=== PATIENT | male | born 1975 | race Caucasian/White ===

== ENCOUNTER 2017-03-08 23:58 | Emergency (ER) | payer OTHER ==
[~2017-03-08] VITALS: Ht 175.3 cm; Wt 88.0 kg
[~2017-03-08 23:58] MED LIST: AMLO-512 PO; ATOR20TA86 PO; HYDR25TA PO; METF500T4 PO; SERT50TA12 PO; TRAZ-144 PO
[2017-03-09] MEDS ORDERED: GABA-531 PO ×2 (00:06)
[2017-03-09 00:12] LABS: GLUCOSE,POINT OF CARE 92 MG/DL (70-110)
[2017-03-09 00:36] LABS: BASOPHILS % (AUTO) 0.8 % (0.0-2.0); EOSINOPHILS % (AUTO) 2.8 % (1.0-6.0); HEMATOCRIT 46.5 % (41-53); HEMOGLOBIN 15.2 g/dL (13.5-17.5); LYMPHOCYTES # (AUTO) 3.2 K/uL (1.0-4.8); LYMPHOCYTES % (AUTO) 31.8 % (22.0-44.0); MEAN CORPUSCULAR HEMOGLOBIN 29.4 pg (26.0-34.0); MEAN CORPUSCULAR HGB CONC 32.6 G/dL (31.0-37.0); MEAN CORPUSCULAR VOLUME 90 fL (80-100); MONOCYTES # (AUTO) 0.9 K/uL (0.1-1.0); MONOCYTES % (AUTO) 9.2 % (2.0-9.0); NEUTROPHILS # (AUTO) 5.5 K/uL (1.8-7.7); NEUTROPHILS % (AUTO) 55.4 % (40.0-70.0); PLATELET COUNT (AUTO) 246 K/uL (150-450); RED BLOOD CELL COUNT(AUTO) 5.17 MIL/uL (4.50-5.90); WHITE BLOOD COUNT (AUTO) 9.9 K/uL (4.5-11.0)
[2017-03-09 00:39] LABS: ANION GAP 6 mmol/L (8-16); CALCIUM, TOTAL 8.6 mg/dL (8.8-10.5); CARBON DIOXIDE 32 mmol/L (22-29); CHLORIDE 104 mmol/L (98-107); GLOMERULAR FILTR. RATE CALC > 60 mL/min (>60); POTASSIUM 3.6 mmol/L (3.5-5.1); SODIUM SERUM 142 mmol/L (136-145); UREA NITROGEN, BLOOD 17 mg/dL (7-18)
[2017-03-09 00:42] LABS: INR 1.1 (0.9-1.1); PROTHROMBIN TIME 11.1 SEC (9.4-11.6)
[2017-03-09 01:00] LABS: B-TYPE NATRIURETIC PEPTIDE < 5 pg/mL (0-100)
[2017-03-09 01:04] LABS: ALANINE AMINOTRANSFERASE 33 U/L (12-78); ALBUMIN 3.9 g/dL (3.4-5.0); ASPARTATE AMINOTRANSFERASE 23 U/L (15-37); BILIRUBIN,TOTAL 0.3 mg/dL (0.1-1.0); CREATINE KINASE MB 3.3 ng/mL (0-5); CREATINE KINASE, TOTAL 275 U/L (39-308); TOTAL PROTEIN, SERUM 7.1 g/dL (6.4-8.2)
[2017-03-09 06:27] VITALS: BP 129/72
== END 2017-03-09 06:35 | disposition home or self-care (01) ==
LOC: EDBD 03-09 → EMS 03-09
DX: R07.9 Chest pain, unspecified (principal); F15.90 Other stimulant use, unspecified, uncomplicated; I10 Essential (primary) hypertension; E11.9 Type 2 diabetes mellitus without complications; E78.00 Pure hypercholesterolemia, unspecified; F12.90 Cannabis use, unspecified, uncomplicated; Z88.8 Allergy status to other drugs, medicaments and biological substances
CPT/HCPCS: 36415; 71010; 80053; 80307; 82550; 82553; 82962; 83880; 84484; 85025; 85610; 85730; 93005; 99285; G0480

== ENCOUNTER 2017-03-17 12:33 | Inpatient (IN) | payer OTHER, MEDICAID ==
[~2017-03-17] VITALS: Ht 175.3 cm; Wt 84.1 kg
[~2017-03-17 12:33] MED LIST changes: +GABA-531 PO
[2017-03-17] MEDS ORDERED: LOSA50TA37 PO (12:54)
[2017-03-17 13:01] LABS: BASOPHILS % (AUTO) 0.9 % (0.0-2.0); EOSINOPHILS % (AUTO) 1.1 % (1.0-6.0); HEMATOCRIT 51.3 % (41-53); HEMOGLOBIN 16.8 g/dL (13.5-17.5); LYMPHOCYTES % (AUTO) 24.6 % (22.0-44.0); MEAN CORPUSCULAR HEMOGLOBIN 29.1 pg (26.0-34.0); MEAN CORPUSCULAR HGB CONC 32.7 G/dL (31.0-37.0); MEAN CORPUSCULAR VOLUME 89 fL (80-100); MONOCYTES # (AUTO) 0.6 K/uL (0.1-1.0); MONOCYTES % (AUTO) 7.6 % (2.0-9.0); NEUTROPHILS # (AUTO) 5.3 K/uL (1.8-7.7); NEUTROPHILS % (AUTO) 65.8 % (40.0-70.0); PLATELET COUNT (AUTO) 220 K/uL (150-450); RED BLOOD CELL COUNT(AUTO) 5.75 MIL/uL (4.50-5.90); WHITE BLOOD COUNT (AUTO) 8.1 K/uL (4.5-11.0)
[2017-03-17 13:02] LABS: GLUCOSE,POINT OF CARE 110 MG/DL (70-110)
[2017-03-17 13:13] LABS: ANION GAP 9 mmol/L (8-16); CALCIUM, TOTAL 9.1 mg/dL (8.8-10.5); CARBON DIOXIDE 31 mmol/L (22-29); CHLORIDE 103 mmol/L (98-107); CREATININE 0.85 mg/dL (0.60-1.30); GLOMERULAR FILTR. RATE CALC > 60 mL/min (>60); POTASSIUM 3.8 mmol/L (3.5-5.1); SODIUM SERUM 143 mmol/L (136-145); UREA NITROGEN, BLOOD 17 mg/dL (7-18)
[2017-03-17 13:15] LABS: INR 1.1 (0.9-1.1)
[2017-03-17 13:20] LABS: ALANINE AMINOTRANSFERASE 34 U/L (12-78); ASPARTATE AMINOTRANSFERASE 21 U/L (15-37); BILIRUBIN,TOTAL 0.7 mg/dL (0.1-1.0); CREATINE KINASE, TOTAL 70 U/L (39-308); TOTAL PROTEIN, SERUM 7.5 g/dL (6.4-8.2)
[2017-03-17 13:23] LABS: B-TYPE NATRIURETIC PEPTIDE < 5 pg/mL (0-100)
[2017-03-17 14:06] LABS: APPEARANCE,URINE CLEAR (CLEAR); GLUCOSE, URINE (UA) NEGATIVE (NEGATIVE); KETONES,URINE NEGATIVE (NEGATIVE); LEUKOCYTE ESTERASE ,URINE NEGATIVE (NEGATIVE); OCCULT BLOOD,URINE NEGATIVE (NEGATIVE); PH,URINE 7.5 (5.0-8.0); PROTEIN,URINE NEGATIVE (NEGATIVE)
[2017-03-17 14:08] LABS: ADD UA MICROSCOPIC NO
[2017-03-17] MEDS ORDERED: ASPIRIN 325 MG EC TABLET PO ONE (14:45)
[2017-03-17] MEDS ORDERED: ACETAMINOPHEN 325 MG TABLET PO PRN (15:30)
[2017-03-17] MEDS ORDERED: ALBUTEROL SULFATE 2.5 MG/0.5 ML NEB SOLUTION NEB PRN (15:30)
[2017-03-17] MEDS ORDERED: IPRATROPIUM BROMIDE 0.5 MG/2.5 ML NEB SOLUTION NEB PRN (15:30)
[2017-03-17] MEDS ORDERED: HYDROCODONE/ACETAMINOPHEN 5-325 MG TABLET PO PRN (15:30)
[2017-03-17] MEDS ORDERED: MAGNESIUM HYDROXIDE SUSPENSION 30 ML UDCUP PO PRN (15:30)
[2017-03-17] MEDS ORDERED: MORPHINE SULFATE 4 MG/ML SYRINGE IVP PRN (15:30)
[2017-03-17] MEDS ORDERED: 0.9% SODIUM CHLORIDE 10 ML SYRINGE IVP PRN (15:30)
[2017-03-17] MEDS ORDERED: ZOLPIDEM TARTRATE 5 MG TABLET PO PRN (15:30)
[2017-03-17] MEDS ORDERED: ONDANSETRON HCL 4 MG/2 ML VIAL IVP PRN (15:30)
[2017-03-17] MEDS ORDERED: BISACODYL 10 MG RECTAL RECTAL SUPPOSITORY PR PRN (15:30)
[2017-03-17 19:45] VITALS: BP 100/85
[2017-03-17] MEDS: GABAPENTIN 300 MG CAPSULE PO SCH (20:20)
[2017-03-17] MEDS: TraZODone HCL 50 MG TABLET PO SCH (20:21)
[2017-03-17] MEDS: DOCUSATE SODIUM 100 MG CAPSULE PO SCH (20:21)
[2017-03-17] MEDS: ACETAMINOPHEN 325 MG TABLET PO PRN (20:23)
[2017-03-17] MEDS ORDERED: DEXTROSE 50%-WATER 25 GM/50 ML SYRINGE IVP PRN (21:00)
[2017-03-17] MEDS: INSULIN ASPART 100 UNITS/ML SQ PRN (21:05)
[2017-03-17 21:27] LABS: GLUCOSE,POINT OF CARE 162 MG/DL (70-110)
[2017-03-17 23:33] VITALS: BP 124/78
[2017-03-18] MEDS ORDERED: PNEUMOCOCCAL VACCINE POLYVALENT 0.5 ML VIAL [PPSV23] IM ONE (00:45)
[2017-03-18 04:45] VITALS: BP 120/72
[2017-03-18 06:28] LABS: BASOPHILS # (AUTO) 0.05 K/uL (0.00-0.20); BASOPHILS % (AUTO) 0.8 % (0.0-2.0); EOSINOPHILS # (AUTO) 0.15 K/uL (0.00-0.70); EOSINOPHILS % (AUTO) 2.28 % (1.0-6.0); HEMATOCRIT 48.3 % (41-53); HEMOGLOBIN 15.8 g/dL (13.5-17.5); LYMPHOCYTES # (AUTO) 2.5 K/uL (1.0-4.8); LYMPHOCYTES % (AUTO) 37.7 % (22.0-44.0); MEAN CORPUSCULAR HEMOGLOBIN 29.3 pg (26.0-34.0); MEAN CORPUSCULAR HGB CONC 32.6 G/dL (31.0-37.0); MEAN CORPUSCULAR VOLUME 90 fL (80-100); MONOCYTES # (AUTO) 0.6 K/uL (0.1-1.0); MONOCYTES % (AUTO) 9.8 % (2.0-9.0); NEUTROPHILS # (AUTO) 3.2 K/uL (1.8-7.7); NEUTROPHILS % (AUTO) 49.4 % (40.0-70.0); PLATELET COUNT (AUTO) 217 K/uL (150-450); RED BLOOD CELL COUNT(AUTO) 5.39 MIL/uL (4.50-5.90); RED CELL DISTRIBUTION WIDTH 13.4 % (11.5-14.5); WHITE BLOOD COUNT (AUTO) 6.5 K/uL (4.5-11.0)
[2017-03-18 06:57] LABS: ALANINE AMINOTRANSFERASE 30 U/L (12-78); ALBUMIN 3.6 g/dL (3.4-5.0); ANION GAP 8 mmol/L (8-16); ASPARTATE AMINOTRANSFERASE 18 U/L (15-37); BILIRUBIN,TOTAL 0.5 mg/dL (0.1-1.0); CALCIUM, TOTAL 8.5 mg/dL (8.8-10.5); CARBON DIOXIDE 31 mmol/L (22-29); CHLORIDE 105 mmol/L (98-107); GLOMERULAR FILTR. RATE CALC > 60 mL/min (>60); POTASSIUM 3.6 mmol/L (3.5-5.1); SODIUM SERUM 144 mmol/L (136-145); UREA NITROGEN, BLOOD 21 mg/dL (7-18)
[2017-03-18 07:12] VITALS: BP 122/74
[2017-03-18 07:17] LABS: GLUCOSE,POINT OF CARE 103 MG/DL (70-110)
[2017-03-18] MEDS: GABAPENTIN 300 MG CAPSULE PO SCH ×2 (08:14→20:48)
[2017-03-18] MEDS: ASPIRIN 81 MG EC TABLET PO SCH (08:14)
[2017-03-18] MEDS: SERTRALINE HCL 50 MG TABLET PO SCH (08:14)
[2017-03-18] MEDS: DOCUSATE SODIUM 100 MG CAPSULE PO SCH ×2 (08:14→20:48)
[2017-03-18] MEDS: ATORVASTATIN CALCIUM 20 MG TABLET PO SCH (08:14)
[2017-03-18] MEDS: PANTOPRAZOLE SODIUM 40 MG/VIAL IVP SCH (08:15)
[2017-03-18] MEDS: HEPARIN SODIUM,PORCINE 5,000 UNITS/ML VIAL SQ SCH ×4 (08:15→23:48)
[2017-03-18 11:09] VITALS: BP 115/71
[2017-03-18] MEDS ORDERED: LACTULOSE 20 GM/30 ML SOLUTION UDCUP PO PRN (14:00)
[2017-03-18] MEDS: ACETAMINOPHEN 325 MG TABLET PO PRN (14:55)
[2017-03-18 16:05] VITALS: BP 113/75
[2017-03-18] MEDS: INSULIN ASPART 100 UNITS/ML SQ PRN (16:15)
[2017-03-18 17:07] LABS: GLUCOSE,POINT OF CARE 109 MG/DL (70-110)
[2017-03-18 20:01] VITALS: BP 103/60
[2017-03-18] MEDS: TraZODone HCL 50 MG TABLET PO SCH (20:48)
[2017-03-18 21:22] LABS: GLUCOSE,POINT OF CARE 118 MG/DL (70-110)
[2017-03-18 23:51] VITALS: BP 112/76
[2017-03-19 03:16] VITALS: BP 121/71
[2017-03-19 05:27] LABS: GLUCOSE,POINT OF CARE 127 MG/DL (70-110)
[2017-03-19 07:51] VITALS: BP 120/73
[2017-03-19] MEDS: SERTRALINE HCL 50 MG TABLET PO SCH (09:37)
[2017-03-19] MEDS: ATORVASTATIN CALCIUM 20 MG TABLET PO SCH (09:37)
[2017-03-19] MEDS: ASPIRIN 81 MG EC TABLET PO SCH (09:37)
[2017-03-19] MEDS: DOCUSATE SODIUM 100 MG CAPSULE PO SCH ×2 (09:37→19:49)
[2017-03-19] MEDS: HEPARIN SODIUM,PORCINE 5,000 UNITS/ML VIAL SQ SCH ×3 (09:38→23:31)
[2017-03-19] MEDS: GABAPENTIN 300 MG CAPSULE PO SCH ×2 (09:38→19:49)
[2017-03-19] MEDS: PANTOPRAZOLE SODIUM 40 MG/VIAL IVP SCH (09:54)
[2017-03-19 11:37] LABS: GLUCOSE,POINT OF CARE 84 MG/DL (70-110)
[2017-03-19 11:40] VITALS: BP 128/72
[2017-03-19 16:15] VITALS: BP 128/77
[2017-03-19 17:47] LABS: GLUCOSE,POINT OF CARE 87 MG/DL (70-110)
[2017-03-19] MEDS: TraZODone HCL 50 MG TABLET PO SCH (19:49)
[2017-03-19 20:00] VITALS: BP_SYST 127; BP_SYST 135; BP_DIAS 68; BP_DIAS 72
[2017-03-19 23:17] LABS: GLUCOSE,POINT OF CARE 90 MG/DL (70-110)
[2017-03-20 00:32] VITALS: BP 119/72
[2017-03-20 04:24] VITALS: BP 123/71
[2017-03-20 05:12] LABS: GLUCOSE COMMENT 1 Received Meds; GLUCOSE,POINT OF CARE 140 MG/DL (70-110)
[2017-03-20 07:34] VITALS: BP 134/84
[2017-03-20] MEDS ORDERED: MAGNESIUM CITRATE 300 ML ORAL SOLUTION PO SCH (09:00)
[2017-03-20] MEDS: ATORVASTATIN CALCIUM 20 MG TABLET PO SCH (09:07)
[2017-03-20] MEDS: SERTRALINE HCL 50 MG TABLET PO SCH (09:07)
[2017-03-20] MEDS: DOCUSATE SODIUM 100 MG CAPSULE PO SCH (09:08)
[2017-03-20] MEDS: GABAPENTIN 300 MG CAPSULE PO SCH (09:08)
[2017-03-20] MEDS: ASPIRIN 81 MG EC TABLET PO SCH (09:09)
[2017-03-20] MEDS: HEPARIN SODIUM,PORCINE 5,000 UNITS/ML VIAL SQ SCH (09:09)
[2017-03-20 14:31] LABS: GLUCOSE,POINT OF CARE 107 MG/DL (70-110)
== END 2017-03-20 14:52 | disposition home or self-care (01) | DRG 880 ==
LOC: EMS 12:34 → 6N 16:08
PROVIDERS: ADMIT Hospitalist; ATTEND Hospitalist
DX: F41.9 Anxiety disorder, unspecified (principal); I63.9 Cerebral infarction, unspecified; I10 Essential (primary) hypertension; E11.9 Type 2 diabetes mellitus without complications; E78.5 Hyperlipidemia, unspecified; F15.10 Other stimulant abuse, uncomplicated; F32.9 Major depressive disorder, single episode, unspecified; K59.00 Constipation, unspecified; Z53.29 Procedure and treatment not carried out because of patient's decision for other reasons; J11.1 Influenza due to unidentified influenza virus with other respiratory manifestations; F12.90 Cannabis use, unspecified, uncomplicated; F43.10 Post-traumatic stress disorder, unspecified; Z82.49 Family history of ischemic heart disease and other diseases of the circulatory system; Z88.8 Allergy status to other drugs, medicaments and biological substances
CPT/HCPCS: 70450; 70551; 82962; 93005; 93306; 93880; 99291; C9113; G0480; J1644